=== PATIENT | female | born 2000 | race Caucasian/White ===

== ENCOUNTER 2024-04-23 20:29 | Emergency (ER) | payer MEDICAID ==
[~2024-04-23] VITALS: Ht 165.1 cm; Wt 54.4 kg
[2024-04-23] MEDS ORDERED: AMOX-430 PO (21:24)
[2024-04-23 21:29] VITALS: BP 103/64; TEMP 98; O2SAT 99
== END 2024-04-23 21:43 | disposition home or self-care (01) ==
LOC: ER 20:34
DX: H66.91 Otitis media, unspecified, right ear (principal); R51.9 Headache, unspecified